=== PATIENT | female | born 1980 | race Caucasian/White ===

== ENCOUNTER 2017-05-22 12:59 | Inpatient (IN) | payer OTHER ==
[~2017-05-22] VITALS: Ht 157.5 cm; Wt 59.9 kg
== END 2017-05-26 13:29 | DRG 743 ==
LOC: SEC-K 12:59 → OB/GYN 12:59
PROVIDERS: Obstetrics & Gynecology
PROC: 30233N1 Transfusion of Nonautologous Red Blood Cells into Peripheral Vein, Percutaneous Approach (ICD-10-PCS; 2017-05-22)
PROC: 0UB90ZZ Excision of Uterus, Open Approach (ICD-10-PCS; principal; 2017-05-23 08:30)
DX: D25.1 Intramural leiomyoma of uterus (principal); D50.0 Iron deficiency anemia secondary to blood loss (chronic)

== ENCOUNTER 2020-03-24 06:50 | Day surgery (SDC) | payer OTHER ==
[~2020-03-24 06:50] MED LIST: ALBUTEROL PO
== END 2020-03-24 16:35 | disposition home or self-care (01) ==
LOC: CIR.AMB 06:50
PROVIDERS: ATTEND Obstetrics & Gynecology
DX: N84.0 Polyp of corpus uteri (principal); Z20.828 Contact with and (suspected) exposure to other viral communicable diseases

== ENCOUNTER 2021-10-12 06:00 | Day surgery (SDC) | payer OTHER ==
[~2021-10-12] VITALS: Ht 160 cm; Wt 68.9 kg
== END 2021-10-12 11:30 | disposition home or self-care (01) ==
LOC: CIR.AMB 06:00
PROVIDERS: ATTEND Obstetrics & Gynecology
DX: N93.9 Abnormal uterine and vaginal bleeding, unspecified (principal); Z20.822 Contact with and (suspected) exposure to COVID-19; Z88.8 Allergy status to other drugs, medicaments and biological substances; J45.909 Unspecified asthma, uncomplicated

== ENCOUNTER 2022-08-15 09:11 | Inpatient (IN) | payer OTHER ==
[~2022-08-15] VITALS: Ht 160 cm; Wt 66.7 kg
[2022-08-15] MEDS ORDERED: PROAIR RESPICL90 MCG IH (11:11)
== END 2022-08-17 10:49 | disposition home or self-care (01) | DRG 743 ==
LOC: O/R 08-16 08:24 → SURH 08-16 10:15 → OB/GYN 08-16 16:19
PROVIDERS: ADMIT Obstetrics & Gynecology; ATTEND Obstetrics & Gynecology
PROC: 0UT74ZZ Resection of Bilateral Fallopian Tubes, Percutaneous Endoscopic Approach (ICD-10-PCS; 2022-08-16)
PROC: 0DNP4ZZ Release Rectum, Percutaneous Endoscopic Approach (ICD-10-PCS; 2022-08-16)
PROC: 0DNN4ZZ Release Sigmoid Colon, Percutaneous Endoscopic Approach (ICD-10-PCS; 2022-08-16)
PROC: 0UT94ZZ Resection of Uterus, Percutaneous Endoscopic Approach (ICD-10-PCS; principal; 2022-08-16 11:15)
DX: D25.1 Intramural leiomyoma of uterus (principal); D25.2 Subserosal leiomyoma of uterus; N84.1 Polyp of cervix uteri; N72 Inflammatory disease of cervix uteri; Z20.822 Contact with and (suspected) exposure to COVID-19

== ENCOUNTER 2022-09-06 21:10 | Emergency (ER) | payer OTHER ==
[~2022-09-06] VITALS: Ht 160 cm; Wt 68.0 kg
[~2022-09-06 21:10] MED LIST changes: +PROAIR RESPICL90 MCG IH
== END 2022-09-07 09:24 | disposition home or self-care (01) ==
LOC: ER 21:10
DX: N93.9 Abnormal uterine and vaginal bleeding, unspecified (principal)
CPT/HCPCS: 36415; 74177; Q9965